=== PATIENT | female | born 1970 | race Hispanic/Latino ===

== ENCOUNTER → 2019-04-04 | Day surgery (SDC) | payer OTHER ==
[2019-04-01 15:09] LABS: BASOPHILS # (AUTO) 0.1 (0.0-0.1); BASOPHILS % 1.6 % (0.0-1.0); EOSINOPHILS # (AUTO) 0.2 (0.0-0.4); EOSINOPHILS % 3.7 % (0.0-6.0); HEMATOCRIT 31.8 % (34.2-44.1); HEMOGLOBIN 9.9 g/dL (12.0-16.0); LYMPHOCYTES # (AUTO) 1.8 (1.0-3.2); LYMPHOCYTES % 32.3 % (18.0-39.1); MEAN CORPUSCULAR HEMOGLOBIN 23.8 pg (28-32); MEAN CORPUSCULAR HGB CONC 31.1 g/dL (31-35); MEAN CORPUSCULAR VOLUME 76.4 fL (81-99); MONOCYTES # (AUTO) 0.6 (0.2-0.8); MONOCYTES % 10.1 % (4.4-11.3); NEUTROPHILS % 52.3 % (38.7-80.0); PLATELET COUNT 303 x10e3/uL (140-360); RED BLOOD COUNT 4.16 x10e6/uL (3.6-5.1); RED CELL DISTRIBUTION WIDTH 14.4 % (11.7-14.4)
[2019-04-01 15:24] LABS: ALANINE AMINOTRANSFERASE 24 IU/L (0-55); ALBUMIN 3.5 g/dL (3.5-5.0); ALBUMIN/GLOBULIN RATIO 0.9 (0.8-2.0); ALKALINE PHOSPHATASE 117 IU/L (40-150); BLOOD UREA NITROGEN 11 mg/dL (7-26); BUN/CREATININE RATIO 16 (6-25); CALCIUM 9.3 mg/dL (8.4-10.2); CARBON DIOXIDE 25 mmol/L (22-29); CHLORIDE 104 mmol/L (98-107); CREATININE, SERUM 0.69 mg/dL (0.57-1.11); EST GLOMERULAR FILTRATION RATE > 60 ML/MIN (60-); GLUCOSE 92 mg/dL (74-118); SODIUM 136 mmol/L (136-145)
[~2019-04-04] MED LIST: BUPIVACAINE 0.5%/EPI 30 ML SDV INJ ONE; BUPIVACAINE HCL 0.5% INJ 30 ML VIAL INJ ONE; CEFAZOLIN SOD 1 GM/NS 50ML 100 ML IV ONE; DEXAMETHASONE SOD PHOS INJ 4 MG/ML VIAL ONE; FENTANYL CITRATE/PF 100MCG/2 ML INJ ONE; KETOROLAC TROMETHAMINE 30 MG/ML VIAL ONE; LIDOCAINE HCL 2% LOCAL INJ 5 ML SDV VIAL INJ ONE; OMEPRAZOLE40 MG PO; ONDANSETRON HCL INJ 2MG/ML 2ML 2 MG/ML VIAL ONE; PROPOFOL IV EMULSION 10 MG/ML 20 ML VIAL ONE; SEVOFLURANE INHAL SOLN 250 ML PEN BTL ONE
--- OUTSIDE RECORDS SUMMARY | 2019-04-04 10:46 | XMS REPORT | Encounter Summary ---
Author Organization Unknown Address [address] [place] [address] Phone [phone] Care Team Providers Care Mannequin Sander And Finisher Name Role Phone Benedict Kan MD 3 [phone] Reason for Visit Medical Complaint Instructions 1. Abdominal pain urinalysis, dipstick Macrobid 100 mg capsule dicyclomine 20 mg tablet Discussion Note: None recorded. Patient educational handouts: No information available. Plan of Care Reminders Provider Appointments None recorded. Lab Urinalysis, Dipstick 06/30/2018 [facility] Referral None recorded. Procedures None recorded. Surgeries None recorded. Imaging None recorded. Medications Name Start Date dicyclomine 20 mg tablet Take 1 tablet 4 times a day by oral route as needed. For abdominal pain Macrobid 100 mg capsule Take 1 capsule every 12 hours by oral route for 5 days. for UTI Medications Administered None recorded. Vitals Height Weight BMI Blood Pressure 5 ft 115 lbs 22.5 kg/m2 118/70 mm[Hg] Lab Results Date Name Specimen Result Interpretation Description Value Range Status Address 06/30/2018 Urinalysis, Dipstick Color : Yellow [facility]: [address] [place] [address] Clarity : Clear [facility]: [address] [place] [address] Leukocytes : Negative [facility]: [address] [place] [address] Nitrites : Negative [facility]: [address] [place] [address] Urobilinogen : Normal [facility]: [address] [place] [address] Protein : Negative [facility]: [address] [place] [address] Ph : 5.0 [facility]: [address] [place] [address] Blood : Negative [facility]: [address] [place] [address] Specific [place] : 1.015 [facility]: [address] [place] [address] Ketones : Small [facility]: [address] [place] [address] Bilirubin : Negative [facility]: [address] [place] [address] Glucose Negative [facility]: [address] [place] [address] Allergies Code Code System Name Reaction Severity Status Onset NKDA Problems None recorded. Procedures None recorded. Vaccine List None recorded. Social History Smoking Status Never Smoker Past Encounters 06/30/2018 Abdominal Pain Krystal Ricardo PA-C: [address] [place] [address], Ph. History of Present Illness Joicix-Umbwgapj-Ieupwgzc / Abdominal Pain Reported By: Patient HPI: Quality: ; lower abdominal pain. Severity: mild. Duration: ; 1.5 days. Onset/Timin-10 times a day; intermittent. Context: no one else with similar symptoms, no possible food sources; history of urinary tract infections, no history of kidney stones. Alleviating factors: ; none. Aggravating factors: ; none. Associated Symptoms: no fever/chills, abdominal pain Review of Systems Basic Reported By: Patient Constitutional: Constitutional: no fever Gastrointestinal: Gastrointestinal: no vomiting / diarrhea, abdominal pain Genitourinary: Genitourinary: no urinary complaints, no discharge Musculoskeletal: Musculoskeletal: no muscle aches Neurologic: Neurologic: no headaches Physical Exam Adult Basic, Adult Female Complete Reported By: Patient Constitutional: General Appearance: healthy-appearing, well-nourished, well-developed. Level of Distress: NAD. Ambulation: ambulating normally Psychiatric: Mental Status: active and alert Eyes: Lids and Conjunctivae: non-injected Lungs: Respiratory effort: no dyspnea, no tachypnea, no use of accessory muscles, no intercostal retractions. Auscultation: breath sounds normal Cardiovascular: Heart Auscultation: RRR, no murmurs Musculoskeletal:: Extremities: no edema Skin: Inspection and palpation: no rash Abdomen: Bowel Sounds: normal. Inspection and Palpation: soft, non-distended, no tenderness, no guarding, no rebound tenderness, no masses, no CVA tenderness
--- OUTSIDE RECORDS SUMMARY | 2019-04-04 10:46 | XMS REPORT ---
[facility] Address Unknown Phone Unavailable Care Team Providers Care Loan Funder Name Role Phone Unavailable Unavailable Problems This patient has no known problems. Allergies, Adverse Reactions, Alerts This patient has no known allergies or adverse reactions. Medications This patient has no known medications. Results Test Description Test Time Test Comments Text Results Atomic Results Result Comments SCR MAMM BILATERAL YASIR CAD DIGITAL 2019-02-11 13:58:51 - SCR MAMM BILATERAL YASIR CAD DIGITALBILATERAL DIGITAL SCREENING MAMMOGRAM 3D/2D WITH CAD: 02/10/2019CLINICAL: Asymptomatic. Digital breast tomosynthesis was performed in addition to routine CC and MLO views. Current mammographic images were evaluated by either a [employer] M-Vu or a Word[employer] ImageChecker CAD (computer aided detection system). Comparison is made to exams dated 02/06/2018 mammogram, 2016 mammogram, 04/15/2012 mammogram, and 04/10/2011 mammogram - [facility]-. There are scattered fibroglandular tissues in both breasts. No suspicious mass, architectural distortion, malignant type calcification, or lymph node abnormality detected. Breast architecture is stable compared to prior exams.IMPRESSION: NEGATIVEThere is no mammographic evidence of malignancy. Resume annual screening mammography in one year. Sugar davis/penfaith:02/11/2019 13:58:51 Welfare Centre Manager: Katharina ROY, [facility]-FWletter sent: BIRADS 1-2 Normal Mammogram BI-RADS: 1 Negative
--- OUTSIDE RECORDS SUMMARY | 2019-04-04 10:46 | XMS REPORT | Continuity of Care Document ---
Author Author Olive Loom Address Unknown Phone Unavailable Care Team Providers Care Highway Traffic Control Technician Name Role Phone thereNow Information [employer] Unavailable Unavailable Problems Problem Status Onset Date Classification Date Reported Comments Source Abdominal pain 06/30/2018 Diagnosis 06/30/2018 [facility] Medications Medication Details Route Status Patient Instructions Ordering Provider Order Date Source Dicyclomine Hydrochloride 20 MG Oral Tablet dicyclomine 20 mg tablet Take 1 tablet 4 times a day by oral route as needed. For abdominal pain Active [facility] NITROFURANTOIN, MACROCRYSTALS 25 MG / Nitrofurantoin, Monohydrate 75 MG Oral Capsule [Macrobid] Macrobid 100 mg capsule Take 1 capsule every 12 hours by oral route for 5 days. for UTI Active [facility] Allergies, Adverse Reactions, Alerts No Known Medication Allergies Immunizations No Data Provided for This Section Results Order Name Results Value Reference Range Date Interpretation Comments Source Urinalysis macro (dipstick) panel - Urine COLOR : Yellow 06/30/2018 [facility] Urinalysis macro (dipstick) panel - Urine CLARITY : Clear 06/30/2018 [facility] Urinalysis macro (dipstick) panel - Urine LEUKOCYTES : Negative 06/30/2018 [facility] Urinalysis macro (dipstick) panel - Urine NITRITES : Negative 06/30/2018 [facility] Urinalysis macro (dipstick) panel - Urine UROBILINOGEN : Normal 06/30/2018 [facility] Urinalysis macro (dipstick) panel - Urine PROTEIN : Negative 06/30/2018 [facility] Urinalysis macro (dipstick) panel - Urine pH : 5.0 06/30/2018 [facility] Urinalysis macro (dipstick) panel - Urine BLOOD : Negative 06/30/2018 [facility] Urinalysis macro (dipstick) panel - Urine SPECIFIC GRAVITY : 1.015 06/30/2018 [facility] Urinalysis macro (dipstick) panel - Urine KETONES : Small 06/30/2018 [facility] Urinalysis macro (dipstick) panel - Urine BILIRUBIN : Negative 06/30/2018 [facility] Urinalysis macro (dipstick) panel - Urine GLUCOSE Negative 06/30/2018 [facility] Pathology Reports No Data Provided for This Section Diagnostic Reports No Data Provided for This Section Consultation Notes No Data Provided for This Section Discharge Summaries No Data Provided for This Section History and Physicals No Data Provided for This Section Vital Signs Vital Sign Value Date Comments Source Diastolic (mm Hg) 70 06/30/2018 [facility] Height 60 06/30/2018 [facility] Systolic (mm Hg) 118 06/30/2018 [facility] Weight 115 06/30/2018 [facility] Encounters Location Location Details Encounter Type Encounter Number Reason For Visit Attending Provider ADM Date DC Date Status Source [place] [id number]: [address] [place] [address], Ph. [id number] Krystal Ricardo 06/30/2018 [facility] Procedures No Data Provided for This Section Assessment and Plan No Data Provided for This Section Plan of Care No Data Provided for This Section Social History Social History Date Source Smoking Status Never Smoker 06/30/2018 [facility] Family History No Data Provided for This Section Advance Directives No Data Provided for This Section Functional Status No Data Provided for This Section
[2019-04-04 14:35] VITALS: BP 115/64
--- NOTE | 2019-04-04 20:14 | Operative Report ---
DATE OF PROCEDURE: 04/04/2019 SURGEON: Gavino Westbrook MD PREOPERATIVE DIAGNOSES: Chronic cholecystitis and cholelithiasis. POSTOPERATIVE DIAGNOSES: Chronic cholecystitis and cholelithiasis. PROCEDURE: Diagnostic laparoscopy, laparoscopic cholecystectomy. PRECIPITATOR SUPERVISOR: None. ANESTHESIA: General endotracheal. INDICATIONS AND FINDINGS: The patient is a 49-year-old female, who had epigastric right upper quadrant abdominal pain. Workup revealed a large gallstone. At surgery, patient's gallbladder was distended with a large stone impacting the gallbladder neck and the gallbladder was folded upon itself. Cystic duct was about 2 mm in diameter. Common bile duct was about 6 mm in diameter. Liver, stomach, lower abdomen all appeared normal. TECHNIQUE: After adequate general endotracheal anesthesia, the patient in the supine position, the abdomen was prepped and draped in sterile fashion with ChloraPrep solution. Skin in the umbilicus was infiltrated with 0.5% Marcaine. Incision made in the umbilicus. Abdominal wall was elevated and Veress needle was introduced. Pneumoperitoneum was then created. A 10 mm trocar and cannula was then passed through the umbilical wound. Laparoscopic camera was introduced. Initial laparoscopy revealed the gallbladder to be distended. Liver, stomach, lower abdomen appeared normal. A 10 mm trocar and cannula was placed in the epigastrium and two 5 mm trocars and cannulas were placed in the right upper quadrant. These were placed under direct vision. Fundus of the gallbladder was grasped, retracted superiorly. The infundibulum of the gallbladder had a large stone within it and the gallbladder was folded upon itself. The infundibulum was grasped. Duodenum was adherent to the area then adhesions were lysed and the neck of the gallbladder was completely dissected free. The gallbladder cystic duct junction was dissected free. Cystic artery was also dissected free. Cystic artery was divided between hemoclips close to the gallbladder. Cystic duct was divided between hemoclips with three clips being left on the common bile duct side. The posterior branch of cystic artery was also divided between hemoclips close to the gallbladder. The gallbladder was dissected free from the liver using scissors and electrocautery. Once it was entirely free, it was placed into an Endopouch and brought out through the epigastric cannula contained at least one large stone. The gallbladder bed was inspected for hemostasis which was seen to be adequate. It was irrigated with saline. All fluid aspirated, inspected for hemostasis which was seen to be adequate. Instruments and cannulas were then removed. Pneumoperitoneum was evacuated. Wounds were then closed. Fascia in the umbilical and epigastric wound closed with 0 Vicryl. Skin to all wounds closed with 4-0 Vicryl in subcuticular fashion. Dermabond and sterile dressing were applied. The patient tolerated the procedure well. Estimated blood loss was 10 mL. There were no complications. All counts were correct. The patient was taken to the recovery room in satisfactory condition. MD YONATHAN Hughes/MODL /[id number]
== END | disposition home or self-care (01) ==
LOC: OR 10:44
PROVIDERS: ATTEND Surgery
DX: K80.10 Calculus of gallbladder with chronic cholecystitis without obstruction (principal); K21.9 Gastro-esophageal reflux disease without esophagitis; Z01.812 Encounter for preprocedural laboratory examination
CPT/HCPCS: 36415; 47562; 80053; 81025; 85025; 88304; J0690; J1100; J1885; J2001; J2405; J2704; J3010

== ENCOUNTER → 2019-05-23 | Day surgery (SDC) | payer OTHER ==
[~2019-05-23] MED LIST changes: +BENADRYL25 M1 PO; -BUPIVACAINE 0.5%/EPI 30 ML SDV INJ ONE; -BUPIVACAINE HCL 0.5% INJ 30 ML VIAL INJ ONE; -CEFAZOLIN SOD 1 GM/NS 50ML 100 ML IV ONE; +IOPAMIDOL 300MG/ML 50ML INFUS..BTL IV ONE; -KETOROLAC TROMETHAMINE 30 MG/ML VIAL ONE
[2019-05-23 10:45] VITALS: BP 104/68
--- NOTE | 2019-05-28 14:20 | Operative Report ---
DATE OF PROCEDURE: 05/23/2019 SURGEON: Andre Bates MD PREOPERATIVE DIAGNOSES: 1. Multiple chronic urinary tract infections. 2. Clinical signs and symptoms of interstitial cystitis. POSTOPERATIVE DIAGNOSES: 1. Multiple chronic urinary tract infections. 2. Clinical signs and symptoms of interstitial cystitis. 3. Urethral stricture disease. PROCEDURES: 1. Cystourethroscopy with calibration and dilation of ureteral stricture (entirely separate procedure for female urethral stricture disease). 2. Cystourethroscopy with hydrodistention (entirely separate procedure for clinical signs and symptoms of interstitial cystitis). 3. Cystourethroscopy with left ureteral catheterization and left retrograde pyelogram (entirely separate procedure for microscopic hematuria and urinary tract infections). 4. Cystourethroscopy with right ureteral catheterization and right retrograde pyelogram (entirely separate procedure for multiple urinary tract infections and microscopic hematuria). 5. Supervision of fluoroscopy. 6. Interpretation of retrograde pyelography. ANESTHESIA: General. ESTIMATED BLOOD LOSS: Minimal. COMPLICATIONS: None. INDICATIONS: Ms. Farah is a very pleasant 49-year-old female with a history of multiple chronic urinary tract infections. She and I had a long discussion about alternatives, risks, and benefits of doing nothing, cystoscopy, IVP, retrograde pyelograms, renal ultrasound, hydrodistention. She voiced understanding of the options, alternatives, the risks, and benefits and elected to proceed. PROCEDURE IN DETAIL: After informed consent was obtained, the patient was taken to the operative suite, placed supine on the operative table, underwent general anesthesia by the Anesthesia Service. She was placed in dorsal supine position, sterilely prepped and draped in a standard fashion for cystoscopy. A 21-Paraguayan cystoscope was inserted per urethra, this failed. The urethra was calibrated to 14-Paraguayan, dilated to 22-Paraguayan. A 21-Paraguayan cystoscope was then reintroduced. Panendoscopy of bladder revealed no tumors, no stones. Both ureteral orifices were in normal and anatomic location and position and were seen to efflux clear urine. Hydrodistention was performed with a capacity of 800 mL, no glomerulations, no Hunner's ulcers. Bilateral retrograde pyelogram was performed, which was normal. The bladder was drained. The patient was awakened from anesthesia and transported to the recovery room in excellent condition. Supervision of fluoroscopy and interpretation of retrograde pyelography: I was present for the entire procedure and supervised the use of fluoroscopy. There was no radiologist present. Attention was turned to the left and right ureteral orifices, which were catheterized with 8-Paraguayan cone-tipped catheter. In retrograde fashion, contrast was injected revealing delicate ureters, delicate pelvocaliceal systems, no evidence of filling defects. No evidence of hydronephrosis. IMPRESSION: Normal retrograde pyelograms. MD NICKI Marques/MODL /[id number]
== END | disposition home or self-care (01) ==
LOC: OR 08:28
PROVIDERS: ATTEND Urology
DX: N39.0 Urinary tract infection, site not specified (principal); K21.9 Gastro-esophageal reflux disease without esophagitis; R31.29 Other microscopic hematuria; N39.46 Mixed incontinence; R35.1 Nocturia; N35.92 Unspecified urethral stricture, female; Z01.812 Encounter for preprocedural laboratory examination; Z88.5 Allergy status to narcotic agent
CPT/HCPCS: 52281; 74420; 81025; J1100; J2001; J2405; J2704; J3010; Q9967

== ENCOUNTER 2019-09-03 23:14 | Emergency (ER) | payer OTHER ==
[~2019-09-03] VITALS: Ht 154.9 cm; Wt 52.2 kg
[~2019-09-03 23:14] MED LIST changes: -DEXAMETHASONE SOD PHOS INJ 4 MG/ML VIAL ONE; -FENTANYL CITRATE/PF 100MCG/2 ML INJ ONE; -IOPAMIDOL 300MG/ML 50ML INFUS..BTL IV ONE; -LIDOCAINE HCL 2% LOCAL INJ 5 ML SDV VIAL INJ ONE; -ONDANSETRON HCL INJ 2MG/ML 2ML 2 MG/ML VIAL ONE; -PROPOFOL IV EMULSION 10 MG/ML 20 ML VIAL ONE; -SEVOFLURANE INHAL SOLN 250 ML PEN BTL ONE
[2019-09-04 00:53] LABS: BASOPHILS # (AUTO) 0.1 (0.0-0.1); BASOPHILS % 1.3 % (0.0-1.0); EOSINOPHILS # (AUTO) 0.6 (0.0-0.4); EOSINOPHILS % 8.9 % (0.0-6.0); HEMATOCRIT 36.6 % (34.2-44.1); HEMOGLOBIN 11.5 g/dL (12.0-16.0); LYMPHOCYTES # (AUTO) 1.9 (1.0-3.2); LYMPHOCYTES % 27.3 % (18.0-39.1); MEAN CORPUSCULAR HGB CONC 31.4 g/dL (31-35); MEAN CORPUSCULAR VOLUME 76.3 fL (81-99); MONOCYTES # (AUTO) 0.7 (0.2-0.8); MONOCYTES % 9.6 % (4.4-11.3); NEUTROPHILS # (AUTO) 3.7 (2.1-6.9); NEUTROPHILS % 52.8 % (38.7-80.0); PLATELET COUNT 293 x10e3/uL (140-360); RED CELL DISTRIBUTION WIDTH 17.1 % (11.7-14.4)
--- NOTE | 2019-09-04 00:57 | Diagnostic Imaging Report ---
EXAMINATION: PA and lateral views of the chest. COMPARISON: None CLINICAL HISTORY: Epigastric pain DISCUSSION: The lungs are well inflated. No focal airspace consolidation, pleural effusion, or pneumothorax. Cardiomediastinal contour and pulmonary vasculature are within normal limits. No acute osseous abnormalities. Right upper quadrant surgical clips, likely related to cholecystectomy. IMPRESSION: No acute cardiopulmonary abnormalities. Signed by: Dr. Gavino Snider M.D. on 09/04/2019 12:55 AM
[2019-09-04 01:01] LABS: ALANINE AMINOTRANSFERASE 36 IU/L (0-55); ALBUMIN 3.7 g/dL (3.5-5.0); ALBUMIN/GLOBULIN RATIO 0.9 (0.8-2.0); ALKALINE PHOSPHATASE 145 IU/L (40-150); ANION GAP 9.9 mmol/L (8-16); BLOOD UREA NITROGEN 13 mg/dL (7-26); BUN/CREATININE RATIO 19 (6-25); CALCIUM 8.7 mg/dL (8.4-10.2); CARBON DIOXIDE 27 mmol/L (22-29); CHLORIDE 100 mmol/L (98-107); CREATINE KINASE 78 IU/L (29-168); CREATININE, SERUM 0.68 mg/dL (0.57-1.11); EST GLOMERULAR FILTRATION RATE > 60 ML/MIN (60-); GLUCOSE 105 mg/dL (74-118); POTASSIUM 3.9 mmol/L (3.5-5.1); SODIUM 133 mmol/L (136-145)
[2019-09-04 01:02] LABS: AMYLASE 140 U/L (25-125); LIPASE 51 U/L (8-78)
[2019-09-04 02:27] VITALS: BP 114/73
== END 2019-09-04 02:28 | disposition home or self-care (01) ==
LOC: ER 23:14
DX: R10.13 Epigastric pain (principal)
CPT/HCPCS: 36415; 71046; 80053; 82150; 82550; 82553; 83690; 84484; 85025; 93005; 99284